=== PATIENT | female | born 1960 | race Caucasian/White ===

== ENCOUNTER 2017-11-20 09:31 | Emergency (ER) | payer SELFPAY | END 2017-11-20 11:30 | disposition home or self-care (01) | LOC: D.ER 09:31 | DX: J20.9 Acute bronchitis, unspecified (principal); J06.9 Acute upper respiratory infection, unspecified; F17.200 Nicotine dependence, unspecified, uncomplicated ==

== ENCOUNTER 2019-11-12 17:21 | Emergency (ER) | payer SELFPAY ==
[2019-11-12 17:35] VITALS: Wt 61.4 kg
[2019-11-12] MEDS ORDERED: LISINOPRIL10 MG PO ×2 (17:39→20:51)
[2019-11-12] MEDS ORDERED: VOLTAREN75 MG PO (20:51)
[2019-11-12 21:01] VITALS: BP 168/85
== END 2019-11-12 21:02 | disposition home or self-care (01) ==
LOC: D.ER 17:21
DX: M25.562 Pain in left knee (principal); I10 Essential (primary) hypertension; Z76.0 Encounter for issue of repeat prescription; Z72.0 Tobacco use